=== PATIENT | female | born 2000 | race Caucasian/White ===

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

== ENCOUNTER 2020-02-01 08:21 | Emergency (ER) | payer OTHER ==
[~2020-02-01] VITALS: Ht 160 cm; Wt 47.7 kg
[~2020-02-01 08:21] MED LIST: NORCO 325 MG-51 TAB PO
[2020-02-01 08:28] VITALS: BP 105/69; TEMP 98
[2020-02-01] MEDS ORDERED: ULTRAM 50MG TAB50 MG PO (08:42)
[2020-02-01 08:55] VITALS: PULSE 71
== END 2020-02-01 08:55 | disposition home or self-care (01) ==
LOC: COL.ER 08:21
DX: S62.653A Nondisplaced fracture of middle phalanx of left middle finger, initial encounter for closed fracture (principal); F17.290 Nicotine dependence, other tobacco product, uncomplicated; W23.0XXA Caught, crushed, jammed, or pinched between moving objects, initial encounter; Y92.009 Unspecified place in unspecified non-institutional (private) residence as the place of occurrence of the external cause